=== PATIENT | female | born 1960 | race American Indian/Alaskan Native ===

== ENCOUNTER 2021-06-04 14:44 | Inpatient (IN) | payer SELFPAY ==
--- NOTE | 2021-06-04 15:13 | Emergency Department Report ---
ED General Adult HPI - General Chief complaint: Abdominal Pain Stated complaint: weakness Time Seen by Provider: 06/04/21 15:05 Source: patient, EMS ( EMS documentation not available at time of chart dictation ), RN notes reviewed Mode of arrival: Wheelchair Limitations: No Limitations - History of Present Illness Initial comments: The patient is a 61-year-old female. She is not known to myself previously. She relocated here from [place] a few months ago. She does not have any medical care over here in the state [facility]. She reports a history of kidney cancer and lung cancer. While in [place], she reports that she received treatment for this. She presents to the ER today with a complaint of nontraumatic back pain, shortness of breath, dizziness, lightheadedness, weakness, malaise and fatigue. No fever. No vomiting. No dysuria. No hematemesis. No bright red blood per rectum. -: Gradual Location: back Quality: aching Consistency: constant Improves with: rest Worsens with: movement - Related Data Home Medications Medication Instructions Recorded Confirmed Last Taken No Known Home Medications [No 06/05/21 06/05/21 Unknown Reported Home Medications] Allergies Allergy/AdvReac Type Severity Reaction Status Date / Time Penicillins Allergy Mild Itching Verified 06/04/21 16:14 ED Review of Systems ROS: Stated complaint: UTI Other details as noted in HPI Constitutional: malaise, weakness. denies: fever ENT: denies: epistaxis Respiratory: cough, shortness of breath Cardiovascular: denies: chest pain Gastrointestinal: abdominal pain. denies: hematemesis, melena, hematochezia Genitourinary: denies: dysuria Musculoskeletal: back pain Neurological: weakness ED Past Medical Hx - Past Medical History Previous Medical History?: Yes Hx Hypertension: Yes Hx of Cancer: Yes (lung, kidnry) - Medications Home Medications: Home Medications Medication Instructions Recorded Confirmed Last Taken Type No Known Home Medications [No 06/05/21 06/05/21 Unknown History Reported Home Medications] ED Physical Exam - General Limitations: No Limitations General appearance: alert, in no apparent distress - Head Head exam: Present: atraumatic, normocephalic - Eye Eye exam: Present: normal appearance, EOMI. Absent: nystagmus - ENT ENT exam: Present: normal exam, normal orophraynx, mucous membranes moist, normal external ear exam - Neck Neck exam: Present: normal inspection, full ROM. Absent: tenderness, meningismus - Respiratory Respiratory exam: Present: normal lung sounds bilaterally. Absent: respiratory distress, wheezes, rales, rhonchi, stridor, decreased breath sounds - Cardiovascular Cardiovascular Exam: Present: regular rate, normal rhythm, normal heart sounds. Absent: bradycardia, tachycardia, irregular rhythm, systolic murmur, diastolic murmur, rubs, gallop - GI/Abdominal GI/Abdominal exam: Present: soft, tenderness. Absent: distended, guarding, rebound, rigid, pulsatile mass - Rectal Rectal exam: Present: normal inspection, normal rectal tone, heme (-) stool, o ther (Chaperoned by Pamela Napier) - Extremities Exam Extremities exam: Present: normal inspection, full ROM, other (2+ pulses noted in the bilateral upper and lower extremities. There is no palpable cord. negative Homans sign. Muscular compartments are soft. The pelvis is stable.). Absent: pedal edema, calf tenderness - Back Exam Back exam: Present: normal inspection, full ROM. Absent: tenderness, CVA tender ness (R), CVA tenderness (L), paraspinal tenderness, vertebral tenderness - Neurological Exam Neurological exam: Present: alert, oriented X3, normal gait, other (No facial droop. Tongue midline. Extraocular movements intact bilaterally. Facial sensation intact to light touch in V1, V2, V3 distribution bilaterally. 5 and a 5 strength in 4 extremities. Sensation intact to light touch in 4 extremities.). Absent: motor sensory deficit - Psychiatric Psychiatric exam: Present: normal affect, normal mood - Skin Skin exam: Present: warm, dry, intact, normal color. Absent: rash ED Course Vital Signs 06/04/21 06/04/21 06/04/21 14:53 15:24 16:09 Temperature 97.3 F L Pulse Rate 78 83 Respiratory 17 16 12 Rate Blood Pressure Blood Pressure 152/97 [Right] O2 Sat by Pulse 100 100 Oximetry 06/04/21 06/04/21 06/04/21 16:13 16:15 16:31 Temperature 97.9 F Pulse Rate 78 72 Respiratory 19 16 Rate Blood Pressure 145/91 135/82 Blood Pressure [Right] O2 Sat by Pulse 100 Oximetry 06/04/21 06/04/21 06/04/21 16:45 17:01 17:15 Temperature Pulse Rate 72 68 69 Respiratory 22 14 14 Rate Blood Pressure 129/83 136/87 133/81 Blood Pressure [Right] O2 Sat by Pulse 100 99 100 Oximetry 06/04/21 06/04/21 06/04/21 17:31 17:45 18:27 Temperature Pulse Rate 74 79 88 Respiratory 19 17 22 Rate Blood Pressure 146/87 158/92 137/81 Blood Pressure [Right] O2 Sat by Pulse 100 100 82 L Oximetry 06/04/21 06/04/21 06/04/21 18:31 18:45 19:01 Temperature Pulse Rate 84 83 79 Respiratory 20 16 15 Rate Blood Pressure 115/82 141/86 145/86 Blood Pressure [Right] O2 Sat by Pulse 100 97 96 Oximetry 06/04/21 06/04/21 06/04/21 19:15 19:31 20:25 Temperature Pulse Rate 81 85 91 H Respiratory 15 15 25 H Rate Blood Pressure 146/88 144/89 152/104 Blood Pressure [Right] O2 Sat by Pulse 96 95 Oximetry 06/04/21 06/04/21 06/04/21 20:31 20:45 21:00 Temperature Pulse Rate 80 79 82 Respiratory 17 15 17 Rate Blood Pressure 152/104 152/104 146/94 Blood Pressure [Right] O2 Sat by Pulse 99 98 100 Oximetry 06/04/21 06/04/21 06/04/21 21:15 21:31 21:45 Temperature Pulse Rate 83 79 Respiratory 17 17 Rate Blood Pressure 146/94 146/94 143/89 Blood Pressure [Right] O2 Sat by Pulse 100 98 98 Oximetry 06/04/21 06/04/21 06/04/21 21:46 21:50 22:00 Temperature Pulse Rate 82 81 82 Respiratory 16 16 17 Rate Blood Pressure 143/89 143/89 143/89 Blood Pressure [Right] O2 Sat by Pulse 97 98 98 Oximetry 06/04/21 06/04/21 06/04/21 22:01 22:10 22:15 Temperature Pulse Rate 82 83 87 Respiratory 18 19 17 Rate Blood Pressure 145/90 145/90 145/90 Blood Pressure [Right] O2 Sat by Pulse 98 98 98 Oximetry 06/04/21 06/04/21 06/04/21 22:23 22:24 22:31 Temperature 97.9 F Pulse Rate 81 81 Respiratory 17 16 Rate Blood Pressure 118/73 118/73 Blood Pressure [Right] O2 Sat by Pulse 99 97 Oximetry 06/04/21 06/04/21 06/04/21 22:45 23:01 23:15 Temperature Pulse Rate 75 79 78 Respiratory 15 16 15 Rate Blood Pressure 148/92 150/91 142/85 Blood Pressure [Right] O2 Sat by Pulse 99 98 98 Oximetry 06/04/21 06/04/21 06/05/21 23:31 23:45 00:00 Temperature Pulse Rate 96 H 78 88 Respiratory 20 14 14 Rate Blood Pressure 142/85 128/80 136/84 Blood Pressure [Right] O2 Sat by Pulse 98 98 99 Oximetry 06/05/21 06/05/21 06/05/21 00:20 01:00 01:28 Temperature 97.6 F 98.7 F Pulse Rate Respiratory 16 18 Rate Blood Pressure 153/100 Blood Pressure [Right] O2 Sat by Pulse 100 Oximetry - Reevaluation(s) Reevaluation #1: 06/04/21 19:32 Differential diagnosis, including not limited to: Orthostasis, vagal event, structural cardiac disease, pneumonia, urinary tract infection, symptomatic anemia, GI bleed kidney cancer, pulmonary cancer Assessment and plan: 61-year-old female with complex past medical history, presenting with weakness, fatigue, back pain, lightheadedness, and near syncope. CT angiogram of chest obtained, shows no pulmonary embolism, demonstrates pneumonia versus malignancy. CT scan abdomen pelvis demonstrates findings of malignancy without findings that would require emergent surgical intervention. Given multiple comorbidities, lack of outpatient primary care, lack of ability t o follow-up, relative immune compromise, have recommended admission for supportive care, and administration of IV antibiotics. Patient is agreeable to this plan of care. Current hospital physician, not able to admit, request that network security engineer admit. Therefore, care was transferred to the oncoming ER provider, to contact the nocturnal hospitalist physician to admit. We attempted to obtain patient's medical records from [facility] in [place], but the iron guardrail installer was informed that medical record department would not be able to transmit or share medical records over the weekend. We will therefore defer to the inpatient team to acquire patient's medical records, should they so desire. 06/05/21 12:58 ED Medical Decision Making - Lab Data Result diagrams: 06/05/21 06:01 06/05/21 06:01 Vital Signs 06/04/21 06/04/21 06/04/21 14:53 15:24 16:09 Temperature 97.3 F L Pulse Rate 78 83 Respiratory 17 16 12 Rate Blood Pressure Blood Pressure 152/97 [Right] O2 Sat by Pulse 100 100 Oximetry 06/04/21 06/04/21 06/04/21 16:13 16:15 16:31 Temperature 97.9 F Pulse Rate 78 72 Respiratory 19 16 Rate Blood Pressure 145/91 135/82 Blood Pressure [Right] O2 Sat by Pulse 100 Oximetry 06/04/21 06/04/21 06/04/21 16:45 17:01 17:15 Temperature Pulse Rate 72 68 69 Respiratory 22 14 14 Rate Blood Pressure 129/83 136/87 133/81 Blood Pressure [Right] O2 Sat by Pulse 100 99 100 Oximetry 06/04/21 06/04/21 06/04/21 17:31 17:45 18:27 Temperature Pulse Rate 74 79 88 Respiratory 19 17 22 Rate Blood Pressure 146/87 158/92 137/81 Blood Pressure [Right] O2 Sat by Pulse 100 100 82 L Oximetry 06/04/21 06/04/21 18:31 18:45 Temperature Pulse Rate 84 83 Respiratory 20 16 Rate Blood Pressure 115/82 141/86 Blood Pressure [Right] O2 Sat by Pulse 100 97 Oximetry Lab Results 06/04/21 06/04/21 06/04/21 Range/Units 15:24 16:06 16:06 WBC 8.1 (4.5-11.0) K/mm3 RBC 3.16 L (3.65-5.03) M/mm3 Hgb 9.7 L (10.1-14.3) gm/dl Hct 27.9 L (30.3-42.9) % MCV 88 (79-97) fl MCH 31 (28-32) pg MCHC 35 H (30-34) % RDW 15.8 H (13.2-15.2) % Plt Count 385 (140-440) K/mm3 Lymph % (Auto) 46.4 H (13.4-35.0) % [place] % (Auto) 4.9 (0.0-7.3) % Eos % (Auto) 5.4 H (0.0-4.3) % Baso % (Auto) 0.6 (0.0-1.8) % Lymph # (Auto) 3.8 (1.2-5.4) K/mm3 [place] # (Auto) 0.4 (0.0-0.8) K/mm3 Eos # (Auto) 0.4 (0.0-0.4) K/mm3 Baso # (Auto) 0.0 (0.0-0.1) K/mm3 Seg Neutrophils % 42.7 (40.0-70.0) % Seg Neutrophils # 3.5 (1.8-7.7) K/mm3 PT 14.6 (12.2-14.9) Sec. INR 1.03 (0.87-1.13) D-Dimer 714.41 H (0-234) ng/mlDDU Sodium (137-145) mmol/L Potassium (3.6-5.0) mmol/L Chloride (98-107) mmol/L Carbon Dioxide (22-30) mmol/L Anion Gap mmol/L BUN (7-17) mg/dL Creatinine (0.6-1.2) mg/dL Estimated GFR ml/min BUN/Creatinine Ratio % Glucose (65-100) mg/dL Calcium (8.4-10.2) mg/dL Magnesium (1.7-2.3) mg/dL Total Bilirubin (0.1-1.2) mg/dL AST (5-40) units/L ALT (7-56) units/L Alkaline Phosphatase (35-129) units/L Total Creatine Kinase (30-135) units/L Troponin T (0.00-0.029) ng/mL Total Protein (6.3-8.2) g/dL Albumin (3.9-5) g/dL Albumin/Globulin Ratio % Urine Color Yellow (Yellow) Urine Turbidity Clear (Clear) Urine pH 5.0 (5.0-7.0) Ur Specific [place] 1.015 (1.003-1.030) Urine Protein <15 mg/dl (Negative) mg/dL Urine Glucose (UA) Neg (Negative) mg/dL Urine Ketones Neg (Negative) mg/dL Urine Blood Neg (Negative) Urine Nitrite Neg (Negative) Urine Bilirubin Neg (Negative) Urine Urobilinogen < 2.0 (<2.0) mg/dL Ur Leukocyte Esterase Tr (Negative) Urine WBC (Auto) 5.0 (0.0-6.0) /HPF Urine RBC (Auto) 1.0 (0.0-6.0) /HPF U Epithel Cells (Auto) 1.0 (0-13.0) /HPF Urine Mucus Few /HPF 06/04/21 Range/Units 16:06 WBC (4.5-11.0) K/mm3 RBC (3.65-5.03) M/mm3 Hgb (10.1-14.3) gm/dl Hct (30.3-42.9) % MCV (79-97) fl MCH (28-32) pg MCHC (30-34) % RDW (13.2-15.2) % Plt Count (140-440) K/mm3 Lymph % (Auto) (13.4-35.0) % [place] % (Auto) (0.0-7.3) % Eos % (Auto) (0.0-4.3) % Baso % (Auto) (0.0-1.8) % Lymph # (Auto) (1.2-5.4) K/mm3 [place] # (Auto) (0.0-0.8) K/mm3 Eos # (Auto) (0.0-0.4) K/mm3 Baso # (Auto) (0.0-0.1) K/mm3 Seg Neutrophils % (40.0-70.0) % Seg Neutrophils # (1.8-7.7) K/mm3 PT (12.2-14.9) Sec. INR (0.87-1.13) D-Dimer (0-234) ng/mlDDU Sodium 136 L (137-145) mmol/L Potassium 4.0 (3.6-5.0) mmol/L Chloride 104.5 (98-107) mmol/L Carbon Dioxide 18 L (22-30) mmol/L Anion Gap 18 mmol/L BUN 15 (7-17) mg/dL Creatinine 0.9 (0.6-1.2) mg/dL Estimated GFR > 60 ml/min BUN/Creatinine Ratio 17 % Glucose 80 (65-100) mg/dL Calcium 10.0 (8.4-10.2) mg/dL Magnesium 1.60 L (1.7-2.3) mg/dL Total Bilirubin 0.30 (0.1-1.2) mg/dL AST 18 (5-40) units/L ALT 9 (7-56) units/L Alkaline Phosphatase 73 (35-129) units/L Total Creatine Kinase 253 H (30-135) units/L Troponin T < 0.010 (0.00-0.029) ng/mL Total Protein 9.1 H (6.3-8.2) g/dL Albumin 4.1 (3.9-5) g/dL Albumin/Globulin Ratio 0.8 % Urine Color (Yellow) Urine Turbidity (Clear) Urine pH (5.0-7.0) Ur Specific [place] (1.003-1.030) Urine Protein (Negative) mg/dL Urine Glucose (UA) (Negative) mg/dL Urine Ketones (Negative) mg/dL Urine Blood (Negative) Urine Nitrite (Negative) Urine Bilirubin (Negative) Urine Urobilinogen (<2.0) mg/dL Ur Leukocyte Esterase (Negative) Urine WBC (Auto) (0.0-6.0) /HPF Urine RBC (Auto) (0.0-6.0) /HPF U Epithel Cells (Auto) (0-13.0) /HPF Urine Mucus /HPF - EKG Data -: EKG Interpreted by Nd EKG shows normal: sinus rhythm Rate: normal - EKG Data 06/04/21 19:27 The EKG is interpreted at 16: 08 Sinus rhythm, left axis deviation, motion artifact, poor R wave progression. QTc 4 5 6 ms. Normal P wave axis. Abnormal EKG. Not a STEMI. No prior for comparison. - Radiology Data Radiology results: pending, report reviewed, image reviewed CTA CHEST WITH CONTRAST INDICATION / CLINICAL INFORMATION: hx of cancer, near syncope. TECHNIQUE: Axial CT images were obtained through the chest after injection of IV contrast. 3 plane MIP and/or 3D reconstructions were produced. A ll CT scans at this location are performed using CT dose reduction for ALARA by means of automated exposure control. COMPARISON: None available. FINDINGS: PULMONARY ARTERIES: No pulmonary emboli. THORACIC AORTA: Mild atherosclerotic calcification without acute abnormality. HEART: Mildly enlarged. CORONARY ARTERY CALCIFICATION: Multivessel MEDIASTINUM / TOM: No significant abnormality. PLEURA: No pleural effusion. No pneumothorax. LUNGS: Patchy airspace opacities involving the lingula, anterior right middle lobe and most significantly the superior segment right lower lobe. Mild emphysema. ADDITIONAL FINDINGS: None. UPPER ABDOMEN: Ill-defined 4 cm mass along the anterior interpolar region right kidney. SKELETAL STRUCTURES: No significant osseous abnormality. IMPRESSION: 1. No CT evidence for pulmonary embolism. 2. Patchy opacities involving the right middle lobe and lingula above. Focal nodular airspace opacity within the superior segment right lower lobe, favored represent pneumonia. However, given ill-defined renal mass, pulmonary metastatic disease is not definitively excluded. Please see CT abdomen and pelvis report for further information regarding right renal mass. Signer Name: Edison Gonzalez MD Signed: 06/04/2021 5:[address] ABDOMEN AND PELVIS WITH CONTRAST INDICATION / CLINICAL INFORMATION: hx of cancer, near syncope back pain. TECHNIQUE: Axial CT images were obtained through the abdomen and pelvis after IV contrast. All CT scans at this location are performed using CT dose reduction for ALARA by means of automated exposure control. COMPARISON: CTA chest same day FINDINGS: LOWER CHEST: Patchy opacities involving the lingula and right middle lobe. LIVER: No significant abnormality. GALLBLADDER: No significant abnormality. PANCREAS: No significant abnormality. SPLEEN: No significant abnormality. ADRENALS: No significant abnormality. RIGHT KIDNEY / URETER: 4 cm solid mass interpolar region right kidney. LEFT KIDNEY / URETER: No significant abnormality. STOMACH / SMALL BOWEL: No significant abnormality. COLON: No significant abnormality. APPENDIX: No significant abnormality. PERITONEUM: Ill-defined hazy appearance of the greater omentum, most notable within the right lower quadrant. LYMPH NODES: No significant adenopathy. AORTA / ARTERIES/ VEINS: Severe atherosclerotic calcification without acute abnormality. URINARY BLADDER: No significant abnormality. REPRODUCTIVE ORGANS: Ill-defined soft tissue densities within the right adnexal region, some of which contain calcifications with regional free fluid within the right adnexal region. Largest soft tissue density measures approximately 2 cm. ADDITIONAL FINDINGS: None. SKELETAL SYSTEM: Grade 1 anterolisthesis L4-5. IMPRESSION: 1. Ill-defined soft tissue densities within the right adnexal region, some of which contain calcifications with regional free fluid within the right adnexal region as detailed above. Findings are not definitively evaluated by CT with are overall suspicious for right adnexal neoplasm. Correlation with patient history and prior imaging is recommended. 2. Hazy appearance of the greater omentum, more notable within the right lower quadrant is also suspicious for peritoneal carcinomatosis. No definite nodular thickening is identified. 3. 4 cm solid mass within the interpolar region of the right kidney, highly susp icious for renal cell carcinoma. 4. Severe atherosclerosis of the aortoiliac system. 5 . Patchy opacities involving the lingula and right middle lobe, favor pneumonia. Signer Name: Edison Gonzalez MD Signed: 06/04/2021 5:43 PM Critical care attestation.: If time is entered above; I have spent that time in minutes in the direct care of this critically ill patient, excluding procedure time. ED Disposition Clinical Impression: Pulmonary infiltrate, Renal cancer, Anemia, Lung cancer, Dehydration, Back pain, Hypomagnesemia, Near syncope Disposition: 09 ADMITTED INPATIENT Is pt being admited?: Yes Does the pt Need Aspirin: No Condition: Good
[2021-06-04] MEDS ORDERED: MORPHINE 4 MG/1 ML INJ IM STA (15:40)
[2021-06-04 16:01] LABS: Bilirubin,Urine NEG (Negative); Blood,Urine NEG (Negative); Color,Urine Yellow (Yellow); Mucus,Urine FEW /HPF; Protein,Urine <15 mg/dL mg/dL (Negative); Urobilinogen,Urine < 2.0 mg/dL (<2.0)
[2021-06-04 16:19] LABS: Basophils % (Auto) 0.6 % (0.0-1.8); Eosinophils # (Auto) 0.4 K/mm3 (0.0-0.4); Eosinophils % (Auto) 5.4 % (0.0-4.3); Hematocrit 27.9 % (30.3-42.9); Hemoglobin 9.7 gm/dl (10.1-14.3); Lymphocytes # (Auto) 3.8 K/mm3 (1.2-5.4); Lymphocytes % (Auto) 46.4 % (13.4-35.0); Mean Corpuscular HGB Conc 35 % (30-34); Mean Corpuscular Volume 88 fl (79-97); Monocytes # (Auto) 0.4 K/mm3 (0.0-0.8); Monocytes % (Auto) 4.9 % (0.0-7.3); Platelet Count 385 K/mm3 (140-440); Red Blood Count 3.16 M/mm3 (3.65-5.03); Red Cell Distribution Width 15.8 % (13.2-15.2)
[2021-06-04 16:33] LABS: INR 1.03 (0.87-1.13)
[2021-06-04 16:44] LABS: Alanine Aminotransferase 9 units/L (7-56); Albumin 4.1 g/dL (3.9-5); BUN/Creatinine Ratio 17; Blood Urea Nitrogen 15 mg/dL (7-17); Hemolysis Index 8
[2021-06-04] MEDS ORDERED: SODIUM CHLORIDE 0.9% 500 ML 500 ML IV ONE (17:17)
[2021-06-04] MEDS: MAGNESIUM OXIDE 400 MG TAB PO SCH (18:29)
--- NOTE | 2021-06-04 18:41 | Cat Scan Report ---
CTA CHEST WITH CONTRAST INDICATION / CLINICAL INFORMATION: hx of cancer, near syncope. TECHNIQUE: Axial CT images were obtained through the chest after injection of IV contrast. 3 plane MT P and/or 3D reconstructions were produced. All CT scans at this location are performed using CT dose reduction for ALARA by means of automated exposure control. COMPARISON: None available. FINDINGS: PULMONARY ARTERIES: No pulmonary emboli. THORACIC AORTA: Mild atherosclerotic calcification without acute abnormality. HEART: Mildly enlarged. CORONARY ARTERY CALCIFICATION: Multivessel MEDIASTINUM / TOM: No significant abnormality. PLEURA: No pleural effusion. No pneumothorax. LUNGS: Patchy airspace opacities involving the lingula, anterior right middle lobe and most significa ntly the superior segment right lower lobe. Mild emphysema. ADDITIONAL FINDINGS: None. UPPER ABDOMEN: Ill-defined 4 cm mass along the anterior interpolar region right kidney. SKELETAL STRUCTURES: No significant osseous abnormality. IMPRESSION: 1. No CT evidence for pulmonary embolism. 2. Patchy opacities involving the right middle lobe and lingula above. Focal nodular airspace opacit y within the superior segment right lower lobe, favored represent pneumonia. However, given ill-defin ed renal mass, pulmonary metastatic disease is not definitively excluded. Please see CT abdomen and p celai report for further information regarding right renal mass. Signer Name: Edison Gonzalez MD Signed: 06/04/2021 6:37 PM Workstation Name: [email or web address]
--- NOTE | 2021-06-04 18:48 | Cat Scan Report ---
CT ABDOMEN AND PELVIS WITH CONTRAST INDICATION / CLINICAL INFORMATION: hx of cancer, near syncope back pain. TECHNIQUE: Axial CT images were obtained through the abdomen and pelvis after IV contrast. All CT sc ans at this location are performed using CT dose reduction for ALARA by means of automated exposure c ontrol. COMPARISON: CTA chest same day FINDINGS: LOWER CHEST: Patchy opacities involving the lingula and right middle lobe. LIVER: No significant abnormality. GALLBLADDER: No significant abnormality. PANCREAS: No significant abnormality. SPLEEN: No significant abnormality. ADRENALS: No significant abnormality. RIGHT KIDNEY / URETER: 4 cm solid mass interpolar region right kidney. LEFT KIDNEY / URETER: No significant abnormality. STOMACH / SMALL BOWEL: No significant abnormality. COLON: No significant abnormality. APPENDIX: No significant abnormality. PERITONEUM: Ill-defined hazy appearance of the greater omentum, most notable within the right lower q uadrant. LYMPH NODES: No significant adenopathy. AORTA / ARTERIES/ VEINS: Severe atherosclerotic calcification without acute abnormality. URINARY BLADDER: No significant abnormality. REPRODUCTIVE ORGANS: Ill-defined soft tissue densities within the right adnexal region, some of which contain calcifications with regional free fluid within the right adnexal region. Largest soft tissue density measures approximately 2 cm. ADDITIONAL FINDINGS: None. SKELETAL SYSTEM: Grade 1 anterolisthesis L4-5. IMPRESSION: 1. Ill-defined soft tissue densities within the right adnexal region, some of which contain calcific ations with regional free fluid within the right adnexal region as detailed above. Findings are not d efinitively evaluated by CT with are overall suspicious for right adnexal neoplasm. Correlation with patient history and prior imaging is recommended. 2. Hazy appearance of the greater omentum, more notable within the right lower quadrant is also susp icious for peritoneal carcinomatosis. No definite nodular thickening is identified. 3. 4 cm solid mass within the interpolar region of the right kidney, highly suspicious for renal judy l carcinoma. 4. Severe atherosclerosis of the aortoiliac system. 5. Patchy opacities involving the lingula and right middle lobe, favor pneumonia. Signer Name: Edison Gonzalez MD Signed: 06/04/2021 6:43 PM Workstation Name: [id number]
[2021-06-04] MEDS ORDERED: ACETAMINOPHEN 325 MG TAB PO PRN (21:59)
[2021-06-04] MEDS ORDERED: HYDROmorphone 1 MG/1 ML INJ IV PRN (21:59)
[2021-06-04] MEDS ORDERED: ONDANSETRON 4 MG/2 ML INJ IV PRN (21:59)
[2021-06-04] MEDS ORDERED: ALBUTEROL 2.5 MG/3 ML NEBU IH PRN (21:59)
--- NOTE | 2021-06-04 22:06 | History and Physical Report ---
History of Present Illness Date of examination: 06/04/21 Date of admission: 06/04/21 Chief complaint: Shortness of breath Back pain History of present illness: 61-year-old female with history of kidney cancer and lung cancer was brought to the ER today with a complaint of nontraumatic back pain, shortness of breath, dizziness, lightheadedness, weakness, malaise and fatigue. No fever. No vomiting. No dysuria. No hematemesis. No bright red blood per rectum. In the emergency room CT scan of the chest shows no CT evidence old PE. Patchy opacities involving the right middle lobe and lingula. Focal nodular airspace opacity within the superior segment right lower lobe, favored to represent pneumonia however given ill-defined renal mass pulmonary metastatic disease is not definitely excluded. CT abdomen shows a right adnexal neoplasm. Healthy appearance of the greater omentum, more notable within the right lower quadrant is also suspicious for peritoneal carcinomatosis. No definite nodular thickening is identified. 4 cm solid mass within the interpolar region of the right kidney, highly suspicious for renal cell carcinoma Past History Past Medical History: hypertension, other (History of lung cancer and kidney cancer) Past Surgical History: No surgical history Social history: no significant social history Family history: no significant family history Medications and Allergies Allergies Allergy/AdvReac Type Severity Reaction Status Date / Time Penicillins Allergy Mild Itching Verified 06/04/21 16:14 Active Meds: Active Medications Magnesium Oxide (Magnesium Oxide 400 Mg Tab) 400 mg PO QDAY HUNTER Last Admin: 06/04/21 18:29 Dose: 400 mg Review of Systems Constitutional: fatigue, weakness, malaise Ears, nose, mouth and throat: other (Dizziness lightheadedness) Cardiovascular: shortness of breath, dyspnea on exertion Respiratory: shortness of breath, dyspnea on exertion Exam - Constitutional Vitals: Temp Pulse Resp BP Pulse Ox 97.9 F 83 16 141/86 97 06/04/21 16:13 06/04/21 18:45 06/04/21 18:45 06/04/21 18:45 06/04/21 18:45 General appearance: Present: no acute distress, well-nourished - EENT Eyes: Present: PERRL ENT: hearing intact, clear oral mucosa - Neck Neck: Present: supple, normal ROM - Respiratory Respiratory effort: normal Respiratory: bilateral: diminished - Cardiovascular Heart Sounds: Present: S1 & S2. Absent: rub, click - Extremities Extremities: pulses symmetrical, No edema Peripheral Pulses: within normal limits - Abdominal General gastrointestinal: Present: soft, non-tender, non-distended, normal bowel sounds Female genitourinary: Present: normal - Integumentary Integumentary: Present: clear, warm, dry - Musculoskeletal Musculoskeletal: gait normal, strength equal bilaterally - Psychiatric Psychiatric: appropriate mood/affect, intact judgment & insight - Neurologic Neurologic: CNII-XII intact, moves all extremities HEART Score - HEART Score Troponin: Troponin T < 0.010 ng/mL (0.00-0.029) 06/04/21 16:06 Results - Labs CBC & Chem 7: 06/04/21 16:06 06/04/21 16:06 Labs: Laboratory Last Values WBC 8.1 K/mm3 (4.5-11.0) 06/04/21 16:06 RBC 3.16 M/mm3 (3.65-5.03) L 06/04/21 16:06 Hgb 9.7 gm/dl (10.1-14.3) L 06/04/21 16:06 Hct 27.9 % (30.3-42.9) L 06/04/21 16:06 MCV 88 fl (79-97) 06/04/21 16:06 MCH 31 pg (28-32) 06/04/21 16:06 MCHC 35 % (30-34) H 06/04/21 16:06 RDW 15.8 % (13.2-15.2) H 06/04/21 16:06 Plt Count 385 K/mm3 (140-440) 06/04/21 16:06 Lymph % (Auto) 46.4 % (13.4-35.0) H 06/04/21 16:06 [place] % (Auto) 4.9 % (0.0-7.3) 06/04/21 16:06 Eos % (Auto) 5.4 % (0.0-4.3) H 06/04/21 16:06 Baso % (Auto) 0.6 % (0.0-1.8) 06/04/21 16:06 Lymph # (Auto) 3.8 K/mm3 (1.2-5.4) 06/04/21 16:06 [place] # (Auto) 0.4 K/mm3 (0.0-0.8) 06/04/21 16:06 Eos # (Auto) 0.4 K/mm3 (0.0-0.4) 06/04/21 16:06 Baso # (Auto) 0.0 K/mm3 (0.0-0.1) 06/04/21 16:06 Seg Neutrophils % 42.7 % (40.0-70.0) 06/04/21 16:06 Seg Neutrophils # 3.5 K/mm3 (1.8-7.7) 06/04/21 16:06 PT 14.6 Sec. (12.2-14.9) 06/04/21 16:06 INR 1.03 (0.87-1.13) 06/04/21 16:06 D-Dimer 714.41 ng/mlDDU (0-234) H 06/04/21 16:06 Sodium 136 mmol/L (137-145) L 06/04/21 16:06 Potassium 4.0 mmol/L (3.6-5.0) 06/04/21 16:06 Chloride 104.5 mmol/L (98-107) 06/04/21 16:06 Carbon Dioxide 18 mmol/L (22-30) L 06/04/21 16:06 Anion Gap 18 mmol/L 06/04/21 16:06 BUN 15 mg/dL (7-17) 06/04/21 16:06 Creatinine 0.9 mg/dL (0.6-1.2) 06/04/21 16:06 Estimated GFR > 60 ml/min 06/04/21 16:06 BUN/Creatinine Ratio 17 % 06/04/21 16:06 Glucose 80 mg/dL (65-100) 06/04/21 16:06 Lactic Acid 1.00 mmol/L (0.7-2.0) 06/04/21 19:55 Calcium 10.0 mg/dL (8.4-10.2) 06/04/21 16:06 Magnesium 1.60 mg/dL (1.7-2.3) L 06/04/21 16:06 Total Bilirubin 0.30 mg/dL (0.1-1.2) 06/04/21 16:06 AST 18 units/L (5-40) 06/04/21 16:06 ALT 9 units/L (7-56) 06/04/21 16:06 Alkaline Phosphatase 73 units/L (35-129) 06/04/21 16:06 Total Creatine Kinase 253 units/L (30-135) H 06/04/21 16:06 Troponin T < 0.010 ng/mL (0.00-0.029) 06/04/21 16:06 Total Protein 9.1 g/dL (6.3-8.2) H 06/04/21 16:06 Albumin 4.1 g/dL (3.9-5) 06/04/21 16:06 Albumin/Globulin Ratio 0.8 % 06/04/21 16:06 Urine Color Yellow (Yellow) 06/04/21 15:24 Urine Turbidity Clear (Clear) 06/04/21 15:24 Urine pH 5.0 (5.0-7.0) 06/04/21 15:24 Ur Specific [place] 1.015 (1.003-1.030) 06/04/21 15:24 Urine Protein <15 mg/dl mg/dL (Negative) 06/04/21 15:24 Urine Glucose (UA) Neg mg/dL (Negative) 06/04/21 15:24 Urine Ketones Neg mg/dL (Negative) 06/04/21 15:24 Urine Blood Neg (Negative) 06/04/21 15:24 Urine Nitrite Neg (Negative) 06/04/21 15:24 Urine Bilirubin Neg (Negative) 06/04/21 15:24 Urine Urobilinogen < 2.0 mg/dL (<2.0) 06/04/21 15:24 Ur Leukocyte Esterase Tr (Negative) 06/04/21 15:24 Urine WBC (Auto) 5.0 /HPF (0.0-6.0) 06/04/21 15:24 Urine RBC (Auto) 1.0 /HPF (0.0-6.0) 06/04/21 15:24 U Epithel Cells (Auto) 1.0 /HPF (0-13.0) 06/04/21 15:24 Urine Mucus Few /HPF 06/04/21 15:24 Microbiology: Microbiology 06/04/21 Unknown Stool - Stool Aspirate Stool Occult Blood (THELMA) - Final - Imaging and Cardiology CT scan - abdomen: report reviewed CT scan - chest: report reviewed Assessment and Plan VTE prophylaxis?: Chemical Plan of care discussed with patient/family: Yes - Patient Problems (1) Pneumonia Current Visit: Yes Status: Acute Plan to address problem: Admit the patient to the medical floor. Oxygen via nasal cannula 3 to per minute. DuoNeb by nebulizer every 4 hours. Levaquin 750 mg IV daily. Due to the blood culture and sputum culture. Recheck CBC BMP in the morning (2) Back pain Current Visit: Yes Status: Acute Plan to address problem: Tylenol 650 mg p.o. every 6 hours as needed. Morphine 2 mg IV every 4 hours as needed (3) Dehydration Current Visit: Yes Status: Acute Plan to address problem: D5 half-normal saline at the rate of 100 cc/h. Recheck BMP in the morning (4) Hypomagnesemia Current Visit: Yes Status: Acute Plan to address problem: Magnesium is supplemented. Recheck magnesium in the morning (5) Lung cancer Current Visit: Yes Status: Acute Plan to address problem: She reports a history of kidney cancer and lung cancer. While in [place], she reports that she received treatment for this. We will consult oncology (6) Renal cancer Current Visit: Yes Status: Acute Plan to address problem: She reports a history of kidney cancer and lung cancer. While in [place], she reports that she received treatment for this. We will consult oncology (7) DVT prophylaxis Current Visit: Yes Status: Acute Plan to address problem: Heparin 5000 units subcu every 12 hours for DVT prophylaxis. Pepcid 20 mg p.o. twice daily for GI prophylaxis. Patient is a full code
[2021-06-04] MEDS: HEPARIN 5,000 UNIT/1 ML VIAL SUB-Q SCH (22:10)
[2021-06-05] MEDS: FAMOTIDINE 20 MG TAB PO SCH ×3 (00:35→21:33)
[2021-06-05] MEDS: HEPARIN 5,000 UNIT/1 ML VIAL SUB-Q SCH ×3 (00:36→21:33)
[2021-06-05] MEDS ORDERED: ZOLPIDEM 5 MG TAB PO ONE ×2 (01:44→23:49)
[2021-06-05] MEDS: IPRATROPIUM/ALBUTEROL SULFATE 3 ML AMPUL.NEB IH SCH ×4 (03:00→20:40)
[2021-06-05 07:18] LABS: BUN/Creatinine Ratio 16; Blood Urea Nitrogen 13 mg/dL (7-17); Calcium 8.7 mg/dL (8.4-10.2); Hemolysis Index 0
[2021-06-05 08:07] LABS: Basophils % (Auto) 0.8 % (0.0-1.8); Eosinophils # (Auto) 0.3 K/mm3 (0.0-0.4); Eosinophils % (Auto) 5.6 % (0.0-4.3); Hematocrit 27.9 % (30.3-42.9); Lymphocytes % (Auto) 49.5 % (13.4-35.0); Mean Corpuscular HGB Conc 32 % (30-34); Mean Corpuscular Volume 89 fl (79-97); Monocytes # (Auto) 0.4 K/mm3 (0.0-0.8); Platelet Count 366 K/mm3 (140-440); Red Blood Count 3.12 M/mm3 (3.65-5.03); Red Cell Distribution Width 15.3 % (13.2-15.2)
--- NOTE | 2021-06-05 09:02 | Progress Note ---
Assessment and Plan Assessment and plan: #Community-acquired pneumonia Chest x-ray revealing for right lower lobe and right middle lobe consolidations concerning for community-acquired pneumonia Continue Levaquin 750 mg daily Ordering coronavirus PCR and sputum culture #Lightheadedness Patient underwent CT angio chest due to concerns for pulmonary embolism; found to be unremarkable Ordering Doppler ultrasound of bilateral lower extremities to evaluate for possible DVT (especially in the setting of cancer history) #Dehydration Continuing IV fluid resuscitation and will reevaluate #History of lung cancer #History of renal cancer Patient reports undergoing treatment for both cancers while living in [place] abdomen/pelvis with contrast concerning for right renal mass and possible peritoneal carcinomatosis Oncology will be consulted #Advanced care planning -Disease education conducted, care plan discussed, diagnoses discussed, prognosis discussed, and patient acknowledges understanding with care plan -Time: +30 min Disposition Plan: Continue medical management Total Time Spent with Patient (Minutes): 30 minutes History Interval history: No acute events overnight Hospitalist Physical - Constitutional Vitals: Temp Pulse Resp BP Pulse Ox 98.7 F 88 18 153/100 100 06/05/21 01:28 06/05/21 00:00 06/05/21 01:00 06/05/21 00:20 06/05/21 01:00 General appearance: Present: no acute distress, well-nourished - EENT Eyes: Present: PERRL, EOM intact ENT: hearing intact, clear oral mucosa, dentition normal - Neck Neck: Present: supple, normal ROM - Respiratory Respiratory effort: normal Respiratory: bilateral: CTA - Cardiovascular Rhythm: regular Heart Sounds: Present: S1 & S2 - Extremities Extremities: no ischemia, pulses intact, pulses symmetrical, No edema, normal temperature, normal color, Full ROM Peripheral Pulses: within normal limits - Abdominal General gastrointestinal: soft, non-tender, non-distended, normal bowel sounds - Integumentary Integumentary: Present: clear, warm, dry - Psychiatric Psychiatric: appropriate mood/affect, cooperative - Neurologic Neurologic: CNII-XII intact, moves all extremities - Allied Health Allied health notes reviewed: nursing HEART Score - HEART Score Troponin: Troponin T < 0.010 ng/mL (0.00-0.029) 06/04/21 16:06 Results - Labs CBC & Chem 7: 06/05/21 06:01 06/05/21 06:01 Labs: Laboratory Last Values WBC 6.0 K/mm3 (4.5-11.0) 06/05/21 06:01 RBC 3.12 M/mm3 (3.65-5.03) L 06/05/21 06:01 Hgb 9.0 gm/dl (10.1-14.3) L 06/05/21 06:01 Hct 27.9 % (30.3-42.9) L 06/05/21 06:01 MCV 89 fl (79-97) 06/05/21 06:01 MCH 29 pg (28-32) 06/05/21 06:01 MCHC 32 % (30-34) 06/05/21 06:01 RDW 15.3 % (13.2-15.2) H 06/05/21 06:01 Plt Count 366 K/mm3 (140-440) 06/05/21 06:01 Lymph % (Auto) 49.5 % (13.4-35.0) H 06/05/21 06:01 [place] % (Auto) 6.0 % (0.0-7.3) 06/05/21 06:01 Eos % (Auto) 5.6 % (0.0-4.3) H 06/05/21 06:01 Baso % (Auto) 0.8 % (0.0-1.8) 06/05/21 06:01 Lymph # (Auto) 3.0 K/mm3 (1.2-5.4) 06/05/21 06:01 [place] # (Auto) 0.4 K/mm3 (0.0-0.8) 06/05/21 06:01 Eos # (Auto) 0.3 K/mm3 (0.0-0.4) 06/05/21 06:01 Baso # (Auto) 0.0 K/mm3 (0.0-0.1) 06/05/21 06:01 Seg Neutrophils % 38.1 % (40.0-70.0) L 06/05/21 06:01 Seg Neutrophils # 2.3 K/mm3 (1.8-7.7) 06/05/21 06:01 PT 14.6 Sec. (12.2-14.9) 06/04/21 16:06 INR 1.03 (0.87-1.13) 06/04/21 16:06 D-Dimer 714.41 ng/mlDDU (0-234) H 06/04/21 16:06 Sodium 136 mmol/L (137-145) L 06/05/21 06:01 Potassium 3.7 mmol/L (3.6-5.0) 06/05/21 06:01 Chloride 105.4 mmol/L (98-107) 06/05/21 06:01 Carbon Dioxide 18 mmol/L (22-30) L 06/05/21 06:01 Anion Gap 16 mmol/L 06/05/21 06:01 BUN 13 mg/dL (7-17) 06/05/21 06:01 Creatinine 0.8 mg/dL (0.6-1.2) 06/05/21 06:01 Estimated GFR > 60 ml/min 06/05/21 06:01 BUN/Creatinine Ratio 16 % 06/05/21 06:01 Glucose 84 mg/dL (65-100) 06/05/21 06:01 Lactic Acid 1.00 mmol/L (0.7-2.0) 06/04/21 19:55 Calcium 8.7 mg/dL (8.4-10.2) 06/05/21 06:01 Magnesium 1.60 mg/dL (1.7-2.3) L 06/04/21 16:06 Total Bilirubin 0.30 mg/dL (0.1-1.2) 06/04/21 16:06 AST 18 units/L (5-40) 06/04/21 16:06 ALT 9 units/L (7-56) 06/04/21 16:06 Alkaline Phosphatase 73 units/L (35-129) 06/04/21 16:06 Total Creatine Kinase 253 units/L (30-135) H 06/04/21 16:06 Troponin T < 0.010 ng/mL (0.00-0.029) 06/04/21 16:06 Total Protein 9.1 g/dL (6.3-8.2) H 06/04/21 16:06 Albumin 4.1 g/dL (3.9-5) 06/04/21 16:06 Albumin/Globulin Ratio 0.8 % 06/04/21 16:06 Urine Color Yellow (Yellow) 06/04/21 15:24 Urine Turbidity Clear (Clear) 06/04/21 15:24 Urine pH 5.0 (5.0-7.0) 06/04/21 15:24 Ur Specific [place] 1.015 (1.003-1.030) 06/04/21 15:24 Urine Protein <15 mg/dl mg/dL (Negative) 06/04/21 15:24 Urine Glucose (UA) Neg mg/dL (Negative) 06/04/21 15:24 Urine Ketones Neg mg/dL (Negative) 06/04/21 15:24 Urine Blood Neg (Negative) 06/04/21 15:24 Urine Nitrite Neg (Negative) 06/04/21 15:24 Urine Bilirubin Neg (Negative) 06/04/21 15:24 Urine Urobilinogen < 2.0 mg/dL (<2.0) 06/04/21 15:24 Ur Leukocyte Esterase Tr (Negative) 06/04/21 15:24 Urine WBC (Auto) 5.0 /HPF (0.0-6.0) 06/04/21 15:24 Urine RBC (Auto) 1.0 /HPF (0.0-6.0) 06/04/21 15:24 U Epithel Cells (Auto) 1.0 /HPF (0-13.0) 06/04/21 15:24 Urine Mucus Few /HPF 06/04/21 15:24 Microbiology: Microbiology 06/04/21 19:55 Peripheral/Venous Blood Culture - Preliminary Culture in Progress 06/04/21 20:25 Peripheral/Venous Blood Culture - Preliminary Culture in Progress 06/04/21 Unknown Stool - Stool Aspirate Stool Occult Blood (THELMA) - Final [place]/IV: Voiding Method Indwelling Catheter Active Medications - Current Medications Current Medications: Generic Name Dose Route Start Last Admin Trade Name Freq PRN Reason Stop Dose Admin Acetaminophen 650 mg 06/04/21 21:59 06/04/21 22:15 Acetaminophen 325 Mg Tab PO 650 mg Q4H PRN Administration Pain MILD(1-3)/Fever >100.5/CORADO Albuterol 2.5 mg 06/04/21 21:59 Albuterol 2.5 Mg/3 Ml Nebu IH Q3HRT PRN Shortness Of Breath Albuterol/Ipratropium 1 ampul 06/05/21 03:00 06/05/21 03:00 Ipratropium/Albuterol Sulfate 3 Ml Ampul.Neb IH Not Given Q6HRT HUNTER Famotidine 20 mg 06/04/21 22:00 06/05/21 00:35 Famotidine 20 Mg Tab PO 20 mg BID HUNTER Administration Heparin Sodium (Porcine) 5,000 unit 06/04/21 22:00 06/04/21 22:10 Heparin 5,000 Unit/1 Ml Vial SUB-Q 5,000 unit Q12HR HUNTER Administration Hydromorphone HCl 0.5 mg 06/04/21 21:59 Hydromorphone 1 Mg/1 Ml Inj IV Q3H PRN Pain , Severe (7-10) Levofloxacin/Dextrose 750 mg in 150 mls @ 100 mls/hr 06/04/21 22:00 06/05/21 00:36 Levaquin 750mg/150ml IV 100 mls/hr Q24H HUNTER Administration Protocol Magnesium Oxide 400 mg 06/04/21 18:00 06/04/21 18:29 Magnesium Oxide 400 Mg Tab PO 400 mg QDAY HUNTER Administration Morphine Sulfate 2 mg 06/04/21 21:59 Morphine 2 Mg/1 Ml Inj IV Q4H PRN Pain, Moderate (4-6) Ondansetron HCl 4 mg 06/04/21 21:59 Ondansetron 4 Mg/2 Ml Inj IV Q8H PRN Nausea And Vomiting Sodium Chloride 10 ml 06/04/21 22:00 06/05/21 00:35 Sodium Chloride 0.9% 10 Ml Flush Syringe IV 10 ml BID HUNTER Administration Sodium Chloride 10 ml 06/04/21 21:59 Sodium Chloride 0.9% 10 Ml Flush Syringe IV PRN PRN LINE FLUSH
[2021-06-05] MEDS: MAGNESIUM OXIDE 400 MG TAB PO SCH (09:16)
[2021-06-05] MEDS: MORPHINE 2 MG/1 ML INJ IV PRN (14:59)
--- NOTE | 2021-06-05 21:00 | Discharge Summary ---
Providers - Providers Date of Admission: 06/04/21 21:59 Date of discharge: 06/06/21 Attending physician: LIDA SANTILLAN MD Primary care physician: VIRIDIANA SANTOS Hospitalization Reason for admission: Community-acquired pneumonia, dehydration Condition: Good Pertinent studies: Reviewed. Procedures: TTE; venous Dopplers of bilateral lower extremities Hospital course: The patient is a 61-year-old female past medical history of renal cancer and lung cancer (status post treatment according to patient) and hypertension who presented with complaints of nontraumatic back pain, shortness of breath, dizziness, lightheadedness, weakness, malaise, and fatigue. In the ED the pa tiesiva was found to be hemodynamically stable. Due to concerns for possible pulmonary embolism, the patient underwent a CT angio chest that was unremarkable for pulmonary embolism. CT abdomen and pelvis with contrast was performed revealing multiple soft tissue densities within the right adnexal region suspicious for right adnexal neoplasm; a hazy appearance of the greater omentum suspicious for peritoneal carcinomatosis; 4 cm solid mass within the interpolar region of the right kidney suspicious of renal cell carcinoma; patchy opacities involving the lingula and right middle lobe concerning for pneumonia. The patient was initiated on Levaquin 750 mg daily. The patient had a TTE revealing , and venous Dopplers of bilateral lower extremities were performed revealing . The patient will be discharged on oral antibiotics for pneumonia to be completed in the outpatient setting (7-day course). Patient expresses understanding. Patient is medically clear for discharge. Disposition: 01 HOME / SELF CARE / HOMELESS Final Discharge Diagnosis (Prints w/discharge instructions): Community-acquired pneumonia, lightheadedness, dehydration, history of lung cancer, history of renal cancer, severe protein caloric malnutrition Time spent for discharge: 45 min Core Measure Documentation - Palliative Care Palliative Care/ Comfort Measures: Not Applicable - Core Measures Any of the following diagnoses?: none Exam - Constitutional Vitals: Temp Pulse Resp BP Pulse Ox 98.9 F 81 20 129/82 100 06/05/21 13:29 06/05/21 20:44 06/05/21 20:44 06/05/21 13:29 06/05/21 20:45 General appearance: Present: no acute distress, cachectic - EENT Eyes: Present: PERRL, EOM intact ENT: hearing intact, clear oral mucosa, dentition normal - Neck Neck: Present: supple, normal ROM - Respiratory Respiratory effort: normal Respiratory: right: diminished - Cardiovascular Rhythm: regular Heart Sounds: Present: S1 & S2 - Extremities Extremities: no ischemia, pulses intact, pulses symmetrical, No edema, normal temperature, normal color, Full ROM Peripheral Pulses: within normal limits - Abdominal General gastrointestinal: Present: soft, non-tender, non-distended, normal bowel sounds Female genitourinary: Present: deferred - Rectal Rectal Exam: deferred - Integumentary Integumentary: Present: clear, warm, dry - Musculoskeletal Musculoskeletal: strength equal bilaterally - Psychiatric Psychiatric: appropriate mood/affect, cooperative - Neurologic Neurologic: CNII-XII intact, moves all extremities - Allied Health Allied health notes reviewed: nursing Plan Activity: advance as tolerated Diet: regular Additional Instructions: The patient is a 61-year-old female past medical history of renal cancer and lung cancer (status post treatment according to patient) and hypertension who presented with complaints of nontraumatic back pain, shortness of breath, dizziness, lightheadedness, weakness, malaise, and fatigue. In the ED the patient was found to be hemodynamically stable. Due to concerns for possible pulmonary embolism, the patient underwent a CT angio chest that was unremarkable for pulmonary embolism. CT abdomen and pelvis with contrast was performed revealing multiple soft tissue densities within the right adnexal region suspicious for right adnexal neoplasm; a hazy appearance of the greater omentum suspicious for peritoneal carcinomatosis; 4 cm solid mass within the interpolar region of the right kidney suspicious of renal cell carcinoma; patchy opacities involving the lingula and right middle lobe concerning for pneumonia. The patient was initiated on Levaquin 750 mg daily. The patient had a TTE revealing , and venous Dopplers of bilateral lower extremities were performed revealing . The patient will be discharged on oral antibiotics for pneumonia to be completed in the outpatient setting (7-day course). Patient expresses understanding. Patient is medically clear for discharge. Care Plan Goals: Patient is medically clear for discharge. Assessment: The patient is a 61-year-old female past medical history of renal cancer and lung cancer (status post treatment according to patient) and hypertension who presented with complaints of nontraumatic back pain, shortness of breath, dizziness, lightheadedness, weakness, malaise, and fatigue. In the ED the patient was found to be hemodynamically stable. Due to concerns for possible pulmonary embolism, the patient underwent a CT angio chest that was unremarkable for pulmonary embolism. CT abdomen and pelvis with contrast was performed revealing multiple soft tissue densities within the right adnexal region suspicious for right adnexal neoplasm; a hazy appearance of the greater omentum suspicious for peritoneal carcinomatosis; 4 cm solid mass within the interpolar region of the right kidney suspicious of renal cell carcinoma; patchy opacities involving the lingula and right middle lobe concerning for pneumonia. The patient was initiated on Levaquin 750 mg daily. The patient had a TTE revealing , and venous Dopplers of bilateral lower extremities were performed revealing . The patient will be discharged on oral antibiotics for pneumonia to be completed in the outpatient setting (7-day course). Patient expresses understanding. Patient is medically clear for discharge. Follow up with: VIRIDIANA SANTOS MD [Primary Care Provider] - 3-5 Days Forms: Work/School Release Form Prescriptions: levoFLOXacin [Levaquin TAB] 500 mg PO Q24HR #6 tablet
[2021-06-06] MEDS: MORPHINE 2 MG/1 ML INJ IV PRN ×2 (05:52→10:26)
[2021-06-06 07:07] LABS: Basophils # (Auto) 0.1 K/mm3 (0.0-0.1); Basophils % (Auto) 0.9 % (0.0-1.8); Eosinophils # (Auto) 0.3 K/mm3 (0.0-0.4); Eosinophils % (Auto) 5.3 % (0.0-4.3); Hematocrit 29.3 % (30.3-42.9); Hemoglobin 9.4 gm/dl (10.1-14.3); Lymphocytes % (Auto) 50.3 % (13.4-35.0); Mean Corpuscular HGB Conc 32 % (30-34); Mean Corpuscular Volume 88 fl (79-97); Monocytes # (Auto) 0.3 K/mm3 (0.0-0.8); Monocytes % (Auto) 5.5 % (0.0-7.3); Platelet Count 361 K/mm3 (140-440); Red Blood Count 3.32 M/mm3 (3.65-5.03); Red Cell Distribution Width 15.6 % (13.2-15.2)
[2021-06-06 07:25] LABS: BUN/Creatinine Ratio 12; Blood Urea Nitrogen 11 mg/dL (7-17); Calcium 9.7 mg/dL (8.4-10.2); Hemolysis Index 3
[2021-06-06] MEDS ORDERED: levoFLOXacin 500 MG TAB PO SCH (10:00)
[2021-06-06] MEDS: MAGNESIUM OXIDE 400 MG TAB PO SCH (10:26)
[2021-06-06] MEDS: FAMOTIDINE 20 MG TAB PO SCH (10:27)
[2021-06-06] MEDS: HEPARIN 5,000 UNIT/1 ML VIAL SUB-Q SCH (10:28)
[2021-06-06] MEDS: IPRATROPIUM/ALBUTEROL SULFATE 3 ML AMPUL.NEB IH SCH ×2 (10:34→16:20)
--- NOTE | 2021-06-06 10:48 | Electrocardiograph Report ---
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
[2021-06-06 14:24] VITALS: BP 140/79
== END 2021-06-06 14:12 | disposition home or self-care (01) | DRG 193 ==
LOC: ED 14:44 → 3A 21:59
PROVIDERS: ADMIT Hospitalist; ATTEND Student in an Organized Health Care Education/Training Program
DX: J18.9 Pneumonia, unspecified organism (principal); E43 Unspecified severe protein-calorie malnutrition; C64.9 Malignant neoplasm of unspecified kidney, except renal pelvis; Z68.1 Body mass index [BMI] 19.9 or less, adult; C34.90 Malignant neoplasm of unspecified part of unspecified bronchus or lung; R91.8 Other nonspecific abnormal finding of lung field; D64.9 Anemia, unspecified; E83.42 Hypomagnesemia; E86.0 Dehydration
CPT/HCPCS: 36415; 71275; 74177; 80048; 80053; 81001; 82140; 82270; 82550; 83735; 84484; 85025; 85379; 85610; 87040; 87086; 93005; 93306; 94640; 99406; G0378; C8929; J1644; J1956; J2270; J7040; Q9967